=== PATIENT | male | born 1940 ===

== ENCOUNTER 2018-10-13 16:42 | Outpatient (REF) | payer MEDICARE, BC, SELFPAY | END 2018-10-13 17:02 | LOC: NCHCN 16:42 | PROVIDERS: PCP Internal Medicine; Visit Provider Internal Medicine | DX: R69 Illness, unspecified (principal) | CPT/HCPCS: 80048; 83721; 84460 ==

== ENCOUNTER 2018-10-13 19:19 | Outpatient (REF) | payer MEDICARE, BC, SELFPAY ==
[2018-10-13 21:09] LABS: ALT 34 U/L (12-78); Anion Gap 9.9 mmol/L (3-11); BUN 16 mg/dL (7-18); CO2 27.1 mmol/L (21.0-32.0); CREATININE 1.26 mg/dL (0.70-1.30); Chloride 104 mmol/L (98-107); Estimated GFR 55.07 (mL/min/1.73m2); Glucose 121 mg/dL (70-100); LDL CHOLESTEROL 78 mg/dL (<100); Potassium 4.1 mmol/L (3.5-5.1); Sodium 141 mmol/L (136-145)
== END 2018-10-13 19:39 ==
LOC: NCHCN 19:19
PROVIDERS: PCP Internal Medicine; Visit Provider Internal Medicine
DX: E11.9 Type 2 diabetes mellitus without complications (principal); I10 Essential (primary) hypertension; E66.9 Obesity, unspecified
CPT/HCPCS: 80048; 83721; 84460

== ENCOUNTER 2019-11-08 11:44 | Outpatient (REF) | payer MEDICARE, BC, SELFPAY ==
[2019-11-08 19:36] LABS: COMMENT (LAB VIEW ONLY) 72.77 mg/dL; Microalb ug/mg Crea 26.1 ug/mg Cr
== END 2019-11-08 12:04 ==
LOC: NCHCN 11:44
PROVIDERS: PCP Internal Medicine; Visit Provider Internal Medicine
DX: E11.9 Type 2 diabetes mellitus without complications (principal)
CPT/HCPCS: 82043; 82570

== ENCOUNTER 2020-04-24 12:34 | Outpatient (REF) | payer MEDICARE, BC, SELFPAY ==
[2020-04-24 19:50] LABS: HCT 41.3 % (40.0-50.0); HGB 13.8 g/dL (13.5-17.5); Mean Corp. HGB Concentration 33.4 g/dL (32.0-36.0); Mean Corpuscular Hemoglobin 30.7 pg (27.0-33.0); Mean Corpuscular Volume 91.8 fL (80-95); Mean Platelet Volume 11.2 fL (8.0-11.0); Platelet Count 278 x1000/uL (130-400); RBC Distribution Width 13.4 % (11.8-14.1); White Blood Cell Count 7.61 k/cumm (4.4-10.8)
[2020-04-24 20:13] LABS: Anion Gap 8.6 mmol/L (3-11); BUN 22 mg/dL (7-18); CO2 27.4 mmol/L (21.0-32.0); CREATININE 1.37 mg/dL (0.70-1.30); Chloride 103 mmol/L (98-107); Estimated GFR 49.75 (mL/min/1.73m2); Glucose 237 mg/dL (74-106); LDL CHOLESTEROL 68 mg/dL (<100); Potassium 4.4 mmol/L (3.5-5.1); Sodium 139 mmol/L (136-145); TSH 0.73 uIU/mL (0.36-3.74)
== END 2020-04-24 12:54 ==
LOC: NCHCN 12:34
PROVIDERS: PCP Internal Medicine; Visit Provider Internal Medicine
DX: R53.83 Other fatigue (principal); E11.9 Type 2 diabetes mellitus without complications; R60.0 Localized edema; E66.9 Obesity, unspecified
CPT/HCPCS: 80048; 83721; 85027; 84443

== ENCOUNTER 2020-10-28 22:54 | Outpatient (REF) | payer MEDICARE, BC, SELFPAY ==
[2020-10-30 18:45] LABS: COVID-19 RT-PCR UVMMC Result Negative (Negative)
== END 2020-10-28 23:14 ==
LOC: NCHCN 22:54
PROVIDERS: PCP Internal Medicine; Visit Provider Internal Medicine
DX: Z20.828 Contact with and (suspected) exposure to other viral communicable diseases (principal)
CPT/HCPCS: U0003

== ENCOUNTER 2020-11-12 20:05 | Outpatient (REF) | payer MEDICARE, BC, SELFPAY ==
[2020-11-14 16:51] LABS: COVID-19 RT-PCR UVMMC Result Positive (Negative)
== END 2020-11-12 20:25 ==
LOC: NCHCN 20:05
PROVIDERS: PCP Internal Medicine; Visit Provider Family Medicine
DX: J06.9 Acute upper respiratory infection, unspecified (principal)
CPT/HCPCS: U0003